=== PATIENT | female | born 1965 | race Caucasian/White ===

== ENCOUNTER 2019-01-03 13:10 | Observation (INO) | payer BC, OTHER ==
[~2019-01-03] VITALS: Ht 172.7 cm; Wt 109.0 kg
[2019-01-03 13:48] LABS: BASOPHILS # (AUTO) 0.04 x10^3/uL (0-0.1); BASOPHILS % (AUTO) 0 % (0-1); EOSINOPHILS # (AUTO) 0.16 x10^3/uL (0-0.4); EOSINOPHILS % (AUTO) 2 % (1-7); LYMPHOCYTES # (AUTO) 2.61 x10^3/uL (1-3.4); LYMPHOCYTES % (AUTO) 29 % (22-44); MD NO; MEAN CORPUSCULAR HEMOGLOBIN 29.7 pg (27.0-34.8); MEAN CORPUSCULAR HGB CONC 33.4 g/dL (32.4-35.8); MEAN PLATELET VOLUME 6.5 fL (7.4-10.4); MONOCYTES # (AUTO) 0.48 x10^3/uL (0.2-0.8); MONOCYTES % (AUTO) 5 % (2-9); NEUTROPHILS # (AUTO) 5.64 x10^3/uL (1.8-6.8); NEUTROPHILS % (AUTO) 63 % (42-75); PLATELET COUNT 364 x10^3/uL (130-400); RED BLOOD COUNT 5.28 x10^6/uL (3.82-5.3); RED CELL DISTRIBUTION WIDTH 13.8 % (9.6-15.2)
[2019-01-03 13:56] LABS: ALBUMIN 4.2 g/dL (3.4-5.0); ANION GAP 8 mmol/L (5-15); CALCIUM 9.8 mg/dL (8.5-10.1); CHLORIDE 107 mmol/L (98-107); CREATININE 0.76 mg/dL (0.55-1.02)
[2019-01-03 14:00] LABS: TROPONIN I < 0.015 ng/mL (0.000-0.045)
--- NOTE | 2019-01-03 14:00 | NUR ---
REPORT FROM BOBBY ZAVALA.
--- NOTE | 2019-01-03 14:05 | NUR ---
PT AMBUALTED WITH STEADY GAIT FROM RESTROOM. ERMD AT BEDSIDE TO EVULATE.
--- NOTE | 2019-01-03 14:33 | NUR ---
PT PRESENTS TO ED WITH C/O SUDDEN LOSS OF SHORT TERM MEMORY. PER FAMILY SHE WAS AT WORK WHEN SHE BECAME DIAPHORETIC AND CONFUSED. SUPPOSEDLY SHE DROVE HOME WHERE SHE MET HER AND SHE WAS THEN BROUGHT HERE. WHEN ASKED EVENTS THAT HAVE OCCURED TODAY PT HAS SOME DIFFICULTY REMEMBERING THEM. PT WITH FAMILY HX OF STROKE. NO WEAKNESS/NUMBNESS NOTED. ABLE TO SMILE WITH NO DROOP. PT STATES SLIGHT LEFT TEMPORAL HEREDIA AT THIS TIME. MILD AMOUNT OF DISTRESS NOTED. BREATHING REGULAR AND UNLABORED. AWAITING FURTHER ORDERS. WILL CONTINUE TO MONITOR.
--- NOTE | 2019-01-03 15:10 | NUR ---
URINE SAMPLE OBTAINED AND SENT TO LAB.
--- NOTE | 2019-01-03 15:12 | NUR ---
HOSPITALIST AT BEDSIDE.
[2019-01-03] MEDS ORDERED: GABAPENTIN 300 MG CAPSULE PO PRN (15:30)
[2019-01-03] MEDS ORDERED: ENOXAPARIN 40 MG/0.4 ML SQ SCH (15:30)
[2019-01-03] MEDS ORDERED: hydrALAzine 20 MG/ML, 1ML IVPush PRN (15:30)
[2019-01-03] MEDS ORDERED: CYCLOBENZAPRINE 10 MG TABLET PO PRN (15:30)
[2019-01-03] MEDS ORDERED: ONDANSETRON 2MG/ML, 2ML IVPush PRN (15:30)
[2019-01-03] MEDS ORDERED: DOCUSATE 100 MG CAPSULE PO PRN (15:30)
[2019-01-03] MEDS ORDERED: GUAIFENESIN/COD200MG-20MG/10ML LIQUID PO PRN (15:30)
--- NOTE | 2019-01-03 15:43 | NUR ---
REPORT GIVEN TO BOBBY PACHECO.
--- NOTE | 2019-01-03 15:45 | NUR ---
PT CURRENTLY IN MRI. UNABLE TO START IV AT THIS TIME.
[2019-01-03 15:48] LABS: MICROSCOPIC AUTO
[2019-01-03 15:50] LABS: CULTURE INDICATED? YES
[2019-01-03 16:07] LABS: AMPHETAMINE SCREEN, URINE Negative (Negative); BARBITURATE SCREEN, URINE Negative (Negative); BENZODIAZEPINE SCREEN, URINE Negative (Negative); CANNABINOID SCREEN, URINE Negative (Negative); COCAINE SCREEN, URINE Negative (Negative); METHADONE SCREEN, URINE Negative (Negative); OPIATE SCREEN, URINE Negative (Negative)
--- NOTE | 2019-01-03 16:24 | NUR ---
PT BACK FROM MRI.
[2019-01-03] MEDS ORDERED: OMNIPAQUE 350 MG/ML, 100ML BOTTLE ONE (16:29)
--- NOTE | 2019-01-03 16:46 | NUR ---
PT TO FLOOR WITH TECH.
[2019-01-03 17:16] VITALS: BP 124/73
[2019-01-03 17:55] VITALS: BP 136/78
[2019-01-03] MEDS ORDERED: LEVO150T5 PO (17:55)
[2019-01-03 19:34] VITALS: BP 125/77
[2019-01-03] MEDS ORDERED: CALCIUM CARBONATE 500 MG TAB.CHEW ONE (20:06)
[2019-01-03] MEDS ORDERED: ACETAMINOPHEN 325 MG TABLET ONE (20:06)
[2019-01-03] MEDS ORDERED: CALCIUM CARBONATE 500 MG TAB.CHEW PO PRN (20:30)
[2019-01-03] MEDS ORDERED: ACETAMINOPHEN 325 MG TABLET PO PRN (20:30)
[2019-01-04 00:49] VITALS: BP 114/69
[2019-01-04 06:18] LABS: CHOL/HDL RATIO 5.5; LDL/HDL RATIO 2.7 (0.5-3.0)
[2019-01-04 07:16] VITALS: BP 118/72
[2019-01-04 07:22] LABS: HEMOGLOBIN A1C 5.5 % (4.2-6.3)
[2019-01-04] MEDS ORDERED: LORazepam 2 MG/ML, 1ML IVPush ONE (07:30)
[2019-01-04] MEDS ORDERED: LORazepam 2 MG/ML, 1ML ONE (07:31)
[2019-01-04] MEDS ORDERED: EZET10TA18 PO (14:16)
[2019-01-04 14:22] VITALS: BP 93/57
== END 2019-01-04 15:30 | disposition home or self-care (01) ==
LOC: ED 14:56 → INTOOBSV 14:57 → EDIP 14:57 → ED 15:15 → 4EST 16:42 → DCLOUNGE 01-04 15:13
PROVIDERS: ADMIT Internal Medicine; ATTEND Internal Medicine
DX: G45.4 Transient global amnesia (principal); E03.9 Hypothyroidism, unspecified; E66.9 Obesity, unspecified; G40.909 Epilepsy, unspecified, not intractable, without status epilepticus; E78.1 Pure hyperglyceridemia; Z68.36 Body mass index [BMI] 36.0-36.9, adult; Z88.5 Allergy status to narcotic agent; Z88.1 Allergy status to other antibiotic agents; Z87.891 Personal history of nicotine dependence
CPT/HCPCS: 36415; 70450; 70496; 70498; 70551; 71045; 80048; 80061; 80307; 81001; 82040; 83036; 83735; 83880; 84484; 85025; 87086; 93005; 96372; 96374; 99285; G0378; J1650; J2060; Q9967